=== PATIENT | male | born 1950 | race Two or more races ===

== ENCOUNTER 2018-01-21 05:18 | Emergency (ER) | payer OTHER ==
[~2018-01-21] VITALS: Ht 157.5 cm; Wt 70.3 kg
[2018-01-21] MEDS ORDERED: VASOTEC20 M1 (05:29)
[2018-01-21] MEDS ORDERED: METFORMIN HCL1000 MG (05:30)
== END 2018-01-21 12:42 | disposition home or self-care (01) ==
LOC: ER 05:18
DX: R07.89 Other chest pain (principal); G81.94 Hemiplegia, unspecified affecting left nondominant side; I10 Essential (primary) hypertension

== ENCOUNTER → 2018-02-02 | Outpatient (CLI) | payer OTHER ==
[~2018-02-02] MED LIST: METFORMIN HCL1000 MG; VASOTEC20 M1
== END | disposition home or self-care (01) ==
LOC: NUCLEAR 08:00
DX: G45.9 Transient cerebral ischemic attack, unspecified (principal); I11.9 Hypertensive heart disease without heart failure

== ENCOUNTER 2018-05-24 10:45 | Outpatient (CLI) | payer OTHER | END 2018-05-24 10:56 | disposition home or self-care (01) | LOC: NUCLEAR 10:45 | DX: R94.31 Abnormal electrocardiogram [ECG] [EKG] (principal); Z95.810 Presence of automatic (implantable) cardiac defibrillator ==

== ENCOUNTER 2018-09-11 02:59 | Emergency (ER) | payer OTHER ==
[~2018-09-11] VITALS: Ht 157.5 cm; Wt 72.6 kg
== END 2018-09-11 12:03 ==
LOC: ER 02:59 → CPU-OBS 03:06 → ER 03:06
DX: M94.0 Chondrocostal junction syndrome [Tietze] (principal); R07.89 Other chest pain

== ENCOUNTER 2018-10-28 10:43 | Outpatient (CLI) | payer OTHER | END 2018-10-28 11:00 | disposition home or self-care (01) | LOC: NUCLEAR 10:43 | DX: I20.9 Angina pectoris, unspecified (principal) | CPT/HCPCS: 78452; 93017; A9500; J1250 ==

== ENCOUNTER 2020-09-20 10:36 | Outpatient (CLI) | payer OTHER | END 2020-09-20 10:44 | disposition home or self-care (01) | LOC: LAB 10:36 | PROVIDERS: ATTEND Ophthalmology | DX: I10 Essential (primary) hypertension (principal); H25.011 Cortical age-related cataract, right eye; D68.8 Other specified coagulation defects; Z98.41 Cataract extraction status, right eye ==

== ENCOUNTER → 2021-02-27 | Outpatient (CLI) | payer OTHER | END | disposition home or self-care (01) | LOC: SONOGRAMA 11:46 | PROVIDERS: ATTEND Internal Medicine | DX: N18.30 Chronic kidney disease, stage 3 unspecified (principal) ==

== ENCOUNTER 2021-10-31 07:46 | Outpatient (CLI) | payer OTHER | END 2021-10-31 08:00 | disposition home or self-care (01) | LOC: TOM 07:46 | PROVIDERS: ATTEND Internal Medicine | DX: R10.9 Unspecified abdominal pain (principal) ==

== ENCOUNTER 2022-03-13 13:40 | Outpatient (CLI) | payer OTHER | END 2022-03-13 13:51 | disposition home or self-care (01) | LOC: MRI 13:40 | PROVIDERS: ATTEND Neuromusculoskeletal Medicine & OMM | DX: F03.90 Unspecified dementia, unspecified severity, without behavioral disturbance, psychotic disturbance, mood disturbance, and anxiety (principal); F09 Unspecified mental disorder due to known physiological condition | CPT/HCPCS: 70551 ==

== ENCOUNTER 2022-10-03 10:00 | Outpatient (CLI) | payer OTHER | END 2022-10-03 10:07 | disposition home or self-care (01) | LOC: SONOGRAMA 10:00 | PROVIDERS: ATTEND Internal Medicine Nephrology | DX: E11.22 Type 2 diabetes mellitus with diabetic chronic kidney disease (principal); N18.2 Chronic kidney disease, stage 2 (mild) ==

== ENCOUNTER 2023-04-23 15:04 | Inpatient (IN) | payer OTHER ==
[2023-04-27] MEDS ORDERED: CLOPIDOGREL BIS75 MG (07:39)
[2023-04-27] MEDS ORDERED: CARVEDILOL12.5 M1 (07:39)
[2023-04-27] MEDS ORDERED: ATORVASTATIN CA40 MG (07:39)
[2023-04-27] MEDS ORDERED: FENOFIBRATE145 MG (07:40)
[2023-04-27] MEDS ORDERED: ISOSORBIDE MONO10 MG (07:40)
[2023-04-27] MEDS ORDERED: DIGOXIN125 MCG (07:40)
[2023-04-27] MEDS ORDERED: MONTELUKAST SOD10 MG (07:40)
[2023-04-27] MEDS ORDERED: ST. JOSEPH ASPI81 M2 (07:40)
[2023-04-27] MEDS ORDERED: TAMSULOSIN HCL0.4 MG (07:40)
[2023-04-27] MEDS ORDERED: SPIRONOLACTONE25 MG (07:40)
[2023-04-28] MEDS ORDERED: INTEGRA PLUS C1 EACH PO (11:47)
[2023-04-28] MEDS ORDERED: TRADJENTA5 MG PO (11:48)
== END 2023-04-28 21:43 | disposition home or self-care (01) | DRG 683 ==
LOC: MEDI 15:04 → SEC-K 15:04 → MEDI 15:26
PROVIDERS: Internal Medicine Nephrology; ADMIT Internal Medicine; ATTEND Internal Medicine
PROC: B24BZZZ Ultrasonography of Heart with Aorta (ICD-10-PCS; principal; 2023-04-24)
DX: N17.9 Acute kidney failure, unspecified (principal); I13.0 Hypertensive heart and chronic kidney disease with heart failure and stage 1 through stage 4 chronic kidney disease, or unspecified chronic kidney disease; E87.5 Hyperkalemia; E86.0 Dehydration; I50.9 Heart failure, unspecified; E11.65 Type 2 diabetes mellitus with hyperglycemia; Z79.4 Long term (current) use of insulin; E11.22 Type 2 diabetes mellitus with diabetic chronic kidney disease; N18.9 Chronic kidney disease, unspecified; K52.89 Other specified noninfective gastroenteritis and colitis; D63.1 Anemia in chronic kidney disease

== ENCOUNTER 2023-05-07 13:54 | Outpatient (CLI) | payer OTHER ==
[~2023-05-07 13:54] MED LIST changes: +ATORVASTATIN CA40 MG; +CARVEDILOL12.5 M1; +CLOPIDOGREL BIS75 MG; +DIGOXIN125 MCG; +FENOFIBRATE145 MG; +INTEGRA PLUS C1 EACH PO; +ISOSORBIDE MONO10 MG; +MONTELUKAST SOD10 MG; +SPIRONOLACTONE25 MG; +ST. JOSEPH ASPI81 M2; +TAMSULOSIN HCL0.4 MG; +TRADJENTA5 MG PO
== END 2023-05-07 13:58 | disposition home or self-care (01) ==
LOC: EKG 13:54
PROVIDERS: ATTEND Internal Medicine
DX: R00.0 Tachycardia, unspecified (principal)

== ENCOUNTER 2023-06-16 11:41 | Emergency (ER) | payer OTHER ==
[~2023-06-16] VITALS: Ht 157.5 cm; Wt 66.7 kg
[2023-06-16 12:44] LABS: HEMATOCRIT 36.7 % (39.0-48.0); MEAN CELL VOLUME 82.5 fL (80.0-100.00); MEAN CORPUSCULAR HGB CONC 34.1 g/dl (32.0-36.0); PLATELET COUNT 202 K/uL (150-450); RED BLOOD COUNT 4.45 M/uL (4.00-6.00); RED CELL DISTRIBUTION WIDTH 13.8 % (11.5-14.5)
[2023-06-16 12:49] LABS: ABG PH 7.417 (7.35-7.45); ABG PO2 77.5 mmHg (80-100); ABG pCO2 39.9 mmHg (35-45); BASE EXCESS 0.7 mmol/l; BICARBONATE 25.1 mmol/l (23-25); SaO2 95.6 %; Tco2 26.4 mmol/l; allen test SATISFACTORY; o2 21 %; puncture site RADIAL RIGHT
[2023-06-16 12:57] LABS: HEMOGLOBIN 12.5 g/dL (13-16.00)
[2023-06-16 13:03] LABS: ALBUMIN 3.5 gm/dL (3.4-5.0); BILIRUBIN TOTAL 0.41 mg/dL (0.3-1.2); CREATININE SERUM 1.3 mg/dL (0.70-1.30); GFR 54.26; GLOBULINA 4.6 G/DL (2.4-3.5); POTASSIUM 3.94 mEq/L (3.5-5.1); TOTAL PROTEIN 8.1 gm/dL (6.4-8.2)
[2023-06-16 13:54] LABS: INR 1.02; PARTIAL THROMBOPLASTIN TIME 24.5 SECONDS (22.0-34.0); PROTHROMBIN TIME 10.7 SECONDS (9.0-11.5)
[2023-06-16 14:59] LABS: PH,URINE 6.5 (5.0-8.0); URINE APPEARANCE Clear; URINE BILIRRUBIN Negative (NEGATIVE); URINE BLOOD Negative; URINE COLOR Yellow; URINE LEUKOCYTE Negative; URINE NITRATE Negative; URINE PROTEIN Negative (NEGATIVE); URINE UROBILINOGEN 0.2 E.U./dl
[2023-06-16 15:07] LABS: URINE BACTERIA 2.5 uL (0.0-1933); URINE GLUCOSE 100 MG/DL (NEGATIVE); URINE RBC 0.5 uL (0.0-20.8); URINE WBC 0.3 uL (0.0-23.2)
== END 2023-06-16 20:04 | disposition home or self-care (01) ==
LOC: ER 11:41
PROVIDERS: General Practice
DX: K52.9 Noninfective gastroenteritis and colitis, unspecified (principal); R07.9 Chest pain, unspecified; Z91.013 Allergy to seafood; I49.8 Other specified cardiac arrhythmias; I10 Essential (primary) hypertension; E78.00 Pure hypercholesterolemia, unspecified; Z20.822 Contact with and (suspected) exposure to COVID-19
CPT/HCPCS: 36415; 71045; 71250; 74176; 82803; 93005; 96365; 96366; 99284; J2543; J3490; J7030

== ENCOUNTER 2023-07-11 00:11 | Emergency (ER) | payer OTHER ==
[~2023-07-11] VITALS: Ht 157.5 cm; Wt 67.1 kg
[2023-07-11 02:36] LABS: HEMATOCRIT 39.3 % (39.0-48.0); HEMOGLOBIN 12.8 g/dL (13-16.00); MEAN CELL VOLUME 83.2 fL (80.0-100.00); MEAN CORPUSCULAR HEMOGLOBIN 27.2 pg (27.00-32.0); MEAN CORPUSCULAR HGB CONC 32.6 g/dl (32.0-36.0); PLATELET COUNT 181 K/uL (150-450); RED BLOOD COUNT 4.72 M/uL (4.00-6.00); RED CELL DISTRIBUTION WIDTH 13.5 % (11.5-14.5)
[2023-07-11 03:06] LABS: CALCIUM 9.6 mg/dL (8.5-10.1); CREATININE SERUM 1.45 mg/dL (0.70-1.30); GFR 47.84; POTASSIUM 4.41 mEq/L (3.5-5.1)
[2023-07-11 08:22] LABS: URINE APPEARANCE Clear; URINE BILIRRUBIN Negative (NEGATIVE); URINE BLOOD Negative; URINE COLOR Yellow; URINE LEUKOCYTE Negative; URINE NITRATE Negative; URINE PROTEIN Negative (NEGATIVE); URINE UROBILINOGEN 0.2 E.U./dl
[2023-07-11 08:52] LABS: URINE GLUCOSE >=1000 MG/DL (NEGATIVE)
[2023-07-11 08:56] LABS: URINE MUCUS MODERATE
[2023-07-11 09:29] LABS: URINE RBC 0-3 /HPF
[2023-07-11 09:30] LABS: URINE EPITHELIAL CELLS 0-4 /HPF; URINE WBC 0-2 /hpf
[2023-07-11 09:35] LABS: URINE BACTERIA FEW
== END 2023-07-11 07:20 | disposition home or self-care (01) ==
LOC: ER
DX: R10.31 Right lower quadrant pain (principal); Z91.013 Allergy to seafood; K30 Functional dyspepsia
CPT/HCPCS: 36415; 74177; 96365; 96372; 99284; J1885; J2250; J3490; Q9965

== ENCOUNTER 2023-07-14 07:58 | Outpatient (CLI) | payer OTHER | END 2023-07-14 08:00 | disposition home or self-care (01) | LOC: NUCLEAR 07:58 | PROVIDERS: ATTEND Internal Medicine | DX: I42.9 Cardiomyopathy, unspecified (principal) ==